=== PATIENT | female | born 1980 | race Caucasian/White ===

== ENCOUNTER → 2018-04-02 | Outpatient (CLI) | payer BC ==
[2005-05-26 00:54] VITALS: TEMP 98.2
[~2018-04-02] MED LIST: CLEOCIN HC150 MG/CAP PO; EFFEXOR-XR150 MG PO; MACROBID 1100 MG/CAP PO; PEPCID 20MG TAB20 MG PO; PYRIDIUM200 M1 PO; VIT C; VIT D
== END ==
LOC: MC.RAD 09:29
DX: Z12.31 Encounter for screening mammogram for malignant neoplasm of breast (principal); N63.11 Unspecified lump in the right breast, upper outer quadrant

== ENCOUNTER → 2018-04-06 | Outpatient (CLI) | payer BC ==
[2005-05-26 00:54] VITALS: TEMP 98.2
== END ==
LOC: MC.RAD 12:37
DX: N63.11 Unspecified lump in the right breast, upper outer quadrant (principal)
CPT/HCPCS: G0279

== ENCOUNTER → 2018-04-08 | Outpatient (CLI) | payer BC | LOC: MC.RAD 06:52 | DX: N63.11 Unspecified lump in the right breast, upper outer quadrant (principal); Z98.82 Breast implant status ==

== ENCOUNTER → 2018-04-21 | Outpatient (CLI) | payer BC ==
[2018-04-21 15:16] LABS: BASO % 0.2 % (0.0-2.0); EOS # 0.2 (0.0-0.7); EOS % 2.5 % (0-4.0); GRAN # 6.2 (1.4-6.5); GRAN % 65.4 % (42.2-75.2); HEMATOCRIT 37.5 % (37.0-47.0); HEMOGLOBIN 12.8 g/dl (12.5-16.0); LYMPH # 2.2 (1.2-3.4); LYMPH % 23.7 % (20.0-51.0); MEAN CELL VOLUME 87 fl (80.0-100.0); MEAN CORPUSCULAR HEMOGLOBIN 30 pg (27.0-31.0); MEAN CORPUSCULAR HGB CONC 34 g/dl (33.0-37.0); MEAN PLATELET VOLUME 8.7 fl (7.4-10.4); MONO # 0.7 (0.1-0.6); MONO % 7.7 % (1.7-9.3); PLATELET COUNT 309 K/mm3 (130-400); REDCELL DISTRIBUTION WIDTH-CV 13.2 % (11.5-14.5)
[2018-04-21 15:25] LABS: COLLECTION METHOD CLEAN CATCH
[2018-04-21 15:30] LABS: MUCOUS Present /lpf; PH 5 (5-8); SQUAMOUS EPITHELIAL 0-2 /hpf; URINE APPEARANCE Clear; URINE BACTERIA Rare /hpf; URINE BILIRUBIN Negative (NEGATIVE); URINE BLOOD Negative (NEGATIVE); URINE COLOR Yellow; URINE GLUCOSE Negative (NEGATIVE); URINE KETONE Negative (NEGATIVE); URINE LEUKOCYTE ESTERASE Negative (NEGATIVE); URINE NITRATE Negative (NEGATIVE); URINE PROTEIN(semi-quant) Negative (NEGATIVE); URINE RBC 0-2 /hpf; URINE UROBILINOGEN Negative (NEGATIVE)
[2018-04-21 15:35] LABS: ERYTHROCYTE SEDIMENTATION RATE 38 mm/hr (0-20)
[2018-04-21 15:42] LABS: ALBUMIN 3.9 gm/dL (3.5-5.0); BILIRUBIN,TOTAL 0.4 mg/dL (0.0-1.0); C-REACTIVE PROTEIN 5.6 mg/dL (0.0-0.9); CALCIUM 9.2 mg/dL (8.4-10.2); CREATININE, serum 0.65 mg/dL (0.52-1.25); POTASSIUM 4.3 mmol/L (3.4-5.0); TOTAL PROTEIN 7.3 gm/dL (6.4-8.2); URIC ACID 4.3 mg/dL (2.5-6.2)
[2018-04-21 16:09] LABS: THYROID STIMULATING HORMONE 2.87 uIU/mL (0.465-4.680)
== END ==
LOC: COL.LAB 14:34
PROVIDERS: Family Medicine
DX: M62.81 Muscle weakness (generalized) (principal)

== ENCOUNTER → 2018-06-05 | Outpatient (CLI) | payer BC | LOC: COL.RAD 12:30 | DX: M79.641 Pain in right hand (principal) | CPT/HCPCS: A9585 ==

== ENCOUNTER → 2018-12-10 | Outpatient (CLI) | payer BC | LOC: MC.RAD 12:40 | DX: D24.1 Benign neoplasm of right breast (principal); Z98.82 Breast implant status | CPT/HCPCS: G0279 ==

== ENCOUNTER → 2019-05-20 | Outpatient (CLI) | payer BC | LOC: MC.RAD 11:38 | DX: Z12.31 Encounter for screening mammogram for malignant neoplasm of breast (principal) ==

== ENCOUNTER → 2020-05-24 | Outpatient (CLI) | payer BC | LOC: MC.RAD 08:45 | DX: Z12.31 Encounter for screening mammogram for malignant neoplasm of breast (principal) ==

== ENCOUNTER → 2021-07-19 | Outpatient (CLI) | payer BC | LOC: MC.RAD 13:45 | DX: Z12.31 Encounter for screening mammogram for malignant neoplasm of breast (principal) ==

== ENCOUNTER → 2022-10-18 | Outpatient (CLI) | payer BC | LOC: MC.RAD 13:31 | DX: Z12.31 Encounter for screening mammogram for malignant neoplasm of breast (principal) ==

== ENCOUNTER → 2023-12-17 | Outpatient (CLI) | payer BC ==
[2005-05-26 00:54] VITALS: PULSE 78; TEMP 98.2
== END ==
LOC: MC.RAD 09:30
DX: Z12.31 Encounter for screening mammogram for malignant neoplasm of breast (principal)